=== PATIENT | female | born 1940 | race Caucasian/White ===

== ENCOUNTER 2023-06-01 10:14 | Emergency (ER) | payer MEDICARE, OTHER ==
[2023-06-01] MEDS ORDERED: Ketorolac Tromethamine 30 MG/ML VIAL ONE (10:47)
[2023-06-01] MEDS ORDERED: Dexamethasone 4 MG TAB ONE (10:49)
[2023-06-01 11:41] LABS: SARS-CoV-2 NAA Rapid Test Not Detected (NotDetected)
== END 2023-06-01 12:57 | disposition home or self-care (01) ==
LOC: ERS 10:14
DX: J21.0 Acute bronchiolitis due to respiratory syncytial virus (principal); I10 Essential (primary) hypertension; E03.9 Hypothyroidism, unspecified; Z79.899 Other long term (current) drug therapy
CPT/HCPCS: 0240U; 71045; 96372; J1885; J8540